=== PATIENT | female | born 1980 | race Caucasian/White ===

== ENCOUNTER 2017-05-09 20:59 | Outpatient (CLI) | payer BC | END 2017-05-09 21:00 | disposition short-term general hospital (02) | LOC: EMS 20:59 | PROVIDERS: ATTEND Surgery | DX: S99.911A Unspecified injury of right ankle, initial encounter (principal); W50.0XXA Accidental hit or strike by another person, initial encounter; Y93.51 Activity, roller skating (inline) and skateboarding; Y92.331 Roller skating rink as the place of occurrence of the external cause | CPT/HCPCS: A0425; A0427 ==